=== PATIENT | female | born 1985 | race Caucasian/White ===

== ENCOUNTER 2018-08-29 20:43 | Inpatient (IN) | payer BC, SELFPAY ==
[2016-05-11 09:08] VITALS: BMI 33.7
[2018-08-29] MEDS: Lactated Ringers 1,000 ML 50 ML IV (21:10)
[2018-08-29 21:30] LABS: Hemoglobin 14.8 g/dl (12.0-15.0); Mean Corp Hgb Conc 34.4 g/gl (32-36); Mean Corpuscular Hgb 30.1 pg (27.0-32.0); Mean Corpuscular Volume 87.6 fL (81-99); Mean Platelet Vol. 10.8 fl (6.2-12.0); Platelet Count 158 K/mm3 (150-450); RBC Distribution Width CV 13.6 % (11.6-14.6); RBC Distribution Width SD 43.5 fl (35.1-43.9); Red Blood Count 4.91 M/mm3 (4.2-5.4); White Blood Count 13.4 K/mm3 (4.4-11.0)
[2018-08-29 21:31] LABS: Scan Indicated on CBC? Y/N NO
--- NOTE | 2018-08-29 21:38 | PCM.HP.OB ---
History Date of Admission: 08/29/18 Final JERMAINE: 09/09/18 Final JERMAINE Source: LMP Gestational age: 38 Weeks and 3 Days History of this : This is a 33 year-old, G [id number] at 38.3 weeks gestational age c/o contractions and ? LOF at home. pt denies vb. At time of arrival she was 6cm/100/-1 bulging membranes. . Allergies No Known Allergies Allergy (Verified 09/30/14 09:20) Home Medications: Home Medications Loratadine [Claritin] 10 mg PO DAILY 09/30/14 Vits [Prenatabs FA ] 1 tablet PO DAILY 09/30/14 Sodium Chloride [Saline Nasal Mist] 126 ml NS PRN PRN 09/30/14 Naproxen [Naprosyn] 250 - 500 mg PO Q8H PRN PRN #30 tablet 05/12/16 Smoking Status: Never smoker Alcohol: None Number of Fetus(es): 1 Heart Tracins mod [place], +accels, no decels TOCO Analysis: q3-6 History Past Pregnancies: Past Pregnancies Delivery Date Name GA/Weeks Outcome Route Weight Infant Gender Labor Length Anesthesia Delivery Location Provider FOB Labs: GBS neg, O+, HIV neg, HEPB neg, RUB imm, Syphilis negative Expected Infant Delivery Method: Spontaneous Vaginal Physical Exam General: Alert, Oriented x3 Abdomen: Soft, Non Tender, Gravid Estimated gestational size: Appropriate for gestational size Presentation: Cephalic Cervix Dilation (cm): 9 Station: -1 Effacement (%): 100 Assessment/Plan This is a 33 year-old, @ 38.3 wks, in active labor 1) admit to L&D 2) monitor FHR/TOCO 3) anticipate 4) NItrous for pain relief if desired
[2018-08-29 21:42] VITALS: BMI 34.4
[2018-08-29 21:44] LABS: ROM Internal Control Test YES-OK TO RESULT pt. (Internal QC); ROM Patient Test Negative (Negative)
[2018-08-29] MEDS: Oxytocin 30 units/NS 500 ml 30 UNITS/500 ML IV.SOLN 334 UNITS IV (22:28)
[2018-08-29] MEDS: Methylergonovine 0.2 MG/ML Ampul IM (22:34)
--- NOTE | 2018-08-29 22:42 | PCM.OB.VAG ---
Vaginal Delivery Maternal Presentation: Active Labor Amniotic Membrane Rupture Type: Artificial Amniotic Fluid Description: Clear Final JERMAINE: 09/09/18 Gestational age: 38 Weeks and 3 Days Date of Procedure: 08/29/18 Pre-Operative Diagnosis: spontaneous labor , term gestation Post-Operative Diagnosis: live female Surgery/ Procedure Performed: Spontaneous Vaginal Delivery Type of Anesthesia: None Description of Procedure: of live female infant born without complications- good maternal effort with pushing and gentle downward traction placed for delivery of anterior shoulder. Delayed cord clamping performed. Presentation: Vertex Placental Delivery Description: Spontaneous Placenta Disposition: [facility] Cord Vessel Description: 3 Vessels Cord Entanglement: None Estimated Blood Loss: 350 Infant A gender: Female (1 minute): 8 (5 minute): 9 Episiotomy Description: None Laceration: Perineal Extension/lac - lidocaine injected and laceration repaired with 2-0 vicryl, 2nd degree Medications given after delivery: IV Pitocin, IM Methergin Complications: None
[2018-08-29] MEDS: Oxytocin 30 units/NS 500 ml 30 UNITS/500 ML IV.SOLN 167 UNITS IV (22:59)
[2018-08-29] MEDS: Ibuprofen 600 MG Tablet PO (23:14)
[2018-08-30] MEDS: 0.9% Saline Lock 10 ML Syringe IV (00:01)
[2018-08-30 00:44] VITALS: BP 126/72; PULSE 88; RESP 16; TEMP 36.6; O2SAT 99
[2018-08-30] MEDS: Acetaminophen 500 MG Tablet 1000 MG PO (04:22)
[2018-08-30 04:23] VITALS: BP 114/62; PULSE 80; RESP 18; TEMP 36.7
--- NOTE | 2018-08-30 07:16 | PCM.PROGNOTE ---
Subjective: pt seen at bedside, doing well. pt reports good pain control. lochia mild. breast feeding - Physical Exam General: Alert, Oriented x3 Extremities: No Calf Tenderness Vital Signs Temp Pulse Resp BP Pulse Ox 98.1 F 80 18 114/62 99 08/30/18 04:23 08/30/18 04:23 08/30/18 04:23 08/30/18 04:23 08/30/18 00:44 Oxygen Delivery Method Room Air Weight: 93.894 kg Body Mass Index (BMI) 34.4 Intake and Output for Last 24 Hours 08/28/18 08/29/18 08/30/18 23:59 23:59 23:59 Intake Total 634 / 634 Output Total 850 / 850 Balance -216 / -216 Laboratory Tests Past 24 Hrs 08/29/18 08/29/18 08/29/18 20:56 21:10 21:10 WBC 13.4 H RBC 4.91 Hgb 14.8 Hct 43.0 MCV 87.6 MCH 30.1 MCHC 34.4 RDW 13.6 RDW Differential 43.5 Plt Count 158 MPV 10.8 Vag Amniotic Fld Detect Negative Blood Type O POSITIVE Antibody Screen NEGATIVE Medical Necessity - Tobacco Use Smoking Status: Never smoker Assessment/Plan PPD#1, doing well routine care pain mgmt
[2018-08-30 07:44] VITALS: BP 102/65; PULSE 78; RESP 18; TEMP 36.6
[2018-08-30] MEDS: Fluticasone 0.05% 1 SPRAY NASAL.SRY 2 SPRAY NASAL (08:02)
[2018-08-30] MEDS: Ibuprofen 600 MG Tablet PO ×2 (08:04→15:55)
[2018-08-30 12:09] VITALS: BP 101/62; PULSE 88; RESP 18; TEMP 36.6
[2018-08-30 15:52] VITALS: BP 100/63; PULSE 92; RESP 16; TEMP 36.6
[2018-08-30 20:00] VITALS: BP 109/61; PULSE 90; RESP 18; TEMP 36.6; O2SAT 97
[2018-08-31 01:10] VITALS: BP 106/70; PULSE 79; RESP 18; TEMP 36.6
[2018-08-31] MEDS: Ibuprofen 600 MG Tablet PO ×2 (01:14→10:56)
[2018-08-31 08:15] VITALS: BP 105/67; PULSE 80; RESP 16; TEMP 36.3; O2SAT 97
--- NOTE | 2018-08-31 08:19 | DCINST_ITS ---
Discharge Diet: No Restrictions Discharge Activity: Return to Normal Activity, May not drive while taking narcotic pain medications., May Shower May resume sexual activity in: 4-6 weeks Additional Activity Instructions:: Nothing in the vagina for 4-6 weeks. You may return to work/school in 6 weeks. Call your doctor if your incision/area has: Continuous Slow Oozing, Sudden Increased Bleeding, Increased Pain/ Swelling, Increased Redness, Foul Smelling Discharge Call your doctor if you observe: Fever of 101 or Higher, Inability to urinate, Inability to have a bowel movement, Using more than one pad per hour Additional Instructions: If you experience any of the following, contact your healthcare provider. * Bleeding that soaks a pad every hour for 2 hours * Fever 100.4 or higher * Unrelieved incision or abdominal pain * Swelling, redness, discharge or bleeding from your incision or episiotomy site * Your incision begins to separate * Problems urinating (including inability to urinate or burning while urinating). * Visual changes * Severe headache * Flu-like symptoms * Pain or redness in one of both of your breasts * Pain, warmth, tenderness or swelling in your legs, especially the calf area * Frequent nausea and vomiting * Symptoms of depression or anxiety If you experience any of the following, call 911 or go to the nearest Emergency Room. * Chest pain * Problems breathing * Seizure activity * Partial or complete paralysis of a body part, slurred speech, weakness or drooping of the face, or a sudden inability to walk or hold your balance Allergies/Adverse Reactions: Allergies No Known Allergies Allergy (Verified 09/30/14 09:20) Medications to take at Discharge Loratadine [Claritin] 10 mg PO DAILY 09/30/14 Vits [Prenatabs FA ] 1 tablet PO DAILY 09/30/14 Sodium Chloride [Saline Nasal Mist] 126 ml NS PRN PRN 09/30/14 Fluticasone 0.05% [Flonase Nasal [place]] 2 spray NASAL DAILY 08/29/18 Please Follow Up With: Nettie Aponte MD When: Call to make an appointment with your doctor in 6 weeks. If you had elevated Blood Pressure or 4th degree laceration you will need to be seen in 2 weeks. Primary Care Physician: Care Physician,No Primary [Primary Care Provider] - Test Results: Test results from this visit will be discussed in further detail at your follow- up appointment, if applicable. Proposed Discharge Date: 08/31/18
--- NOTE | 2018-08-31 08:23 | PN.OBGYN_ITS ---
Subjective: Patient sitting up in bed at this time. Patient reports slight discomfort with latch on L>R nipple though she denies any cracks, blisters or bleeding from left nipple. Patient denies issues with urination or ambulation. Denies PUENTE, scotoma or dizziness. Patient desires discharge to home today. Objective: Nipples with slight ecchymoses at tips, L>R side. No blisters or cracks noted Abdomen NT x 4 quadrants, FF midline 2FB below umbilicus +2/4 reflexes in LE, no edema noted, negative calf tenderness to palpation scant rubra lochia, perineum well approximated - Physical Exam General: Alert, Oriented x3, Cooperative HEENT: Atraumatic, Normocephalic Neck: Supple Lungs: Normal air movement Cardiovascular: Regular rate, Regular Rhythm Abdomen: Soft, Non Tender, Passing Flatus Extremities: No edema, Capillary Refill Less than 3 Seconds Skin: No rashes, No breakdown Musculoskeletal: No Tenderness to Palpation of Joints or Extremities Neurological: Cranial nerves II-XII grossly intact Psych/Mental Status: Normal Affect, Appropriate, Alert and oriented to time, place, person, mood and affect Vital Signs Temp Pulse Resp BP Pulse Ox 97.9 F 79 18 106/70 97 08/31/18 01:10 08/31/18 01:10 08/31/18 01:10 08/31/18 01:10 08/30/18 20:00 Oxygen Delivery Method Room Air Weight: 207 lb Body Mass Index (BMI) 34.4 Intake and Output for Last 24 Hours 08/29/18 08/30/18 08/31/18 23:59 23:59 23:59 Intake Total 634 / 634 Output Total 850 / 850 Balance -216 / -216 Medical Necessity - Tobacco Use Smoking Status: Never smoker Assessment/Plan 33 y/o now, s/p , PPD #2, Normal Course P: 1) Discharge to home pending discharge 2) Anticipatory discharge PP teaching done 3) RTC at [facility] by 6 weeks PP Mahogany MORRIS
[2018-08-31] MEDS: Fluticasone 0.05% 1 SPRAY NASAL.SRY 2 SPRAY NASAL (10:56)
[2018-08-31 11:41] VITALS: BP 103/73; PULSE 84; RESP 18; TEMP 36.9; O2SAT 100
--- NOTE | 2018-09-04 18:39 | NURSING ---
Follow up phone call complete, pt denies needs, states baby is nursing well and was satisfied with her care, denies questions or problems
== END 2018-08-31 12:00 | disposition home or self-care (01) | DRG 807 ==
PROVIDERS: Admitting Provider Obstetrics & Gynecology; Visit Provider Obstetrics & Gynecology
DX: O70.1 Second degree perineal laceration during delivery (principal); Z37.0 Single live birth; Z3A.38 38 weeks gestation of pregnancy
CPT/HCPCS: 59025; 84112; 85027; 86850; 86900; 99218; J7120; A4216; G0378